=== PATIENT | male | born 1935 | race Caucasian/White ===

== ENCOUNTER 2021-02-24 12:41 | Emergency (ER) | payer OTHER, MEDICARE, SELFPAY ==
[2021-02-24 12:48] VITALS: BP 152/75; PULSE 88; RESP 18; TEMP 36.6; O2SAT 97; BMI 28.4
[2021-02-24 13:03] VITALS: BP 145/77; PULSE 86; RESP 16; O2SAT 95
--- NOTE | 2021-02-24 13:14 | CTR_ITS ---
PROCEDURE INFORMATION: Exam: CT Abdomen And Pelvis Without Contrast Exam date and time: 02/24/2021 1:30 PM Age: 86 years old Clinical indication: Abdominal pain; Localized; Right lower quadrant (rlq); Prior surgery; Surgery date: 6+ months; Surgery type: Hernia x 2; Patient HX: C/O R groin pain x 3 days w HX of hernias; Additional info: Right groin pain. H/o inguinal hernia TECHNIQUE: Imaging protocol: Computed tomography of the abdomen and pelvis without contrast. Radiation optimization: All CT scans at this facility use at least one of these dose optimization techniques: automated exposure control; mA and/or kV adjustment per patient size (includes targeted exams where dose is matched to clinical indication); or iterative reconstruction. COMPARISON: CT Abdomen/Pelvis w IV* [id number] 05/15/2018 12:00 AM RADIATION DOSE METRICS: Total DLP (mGy-cm): 1763.45 FINDINGS: Liver: Small nonspecific hepatic hypodensities consistent with cysts, largest approximately 15 mm. Gallbladder and bile ducts: Unremarkable. No ductal dilation. Pancreas: No acute findings. No ductal dilation. Spleen: Normal. No splenomegaly. Adrenal glands: Normal. No mass. Kidneys and ureters: No calculus or hydronephrosis. Stomach and bowel: No acute findings. No obstruction. No mucosal thickening. Colonic diverticulosis. Appendix: No evidence of appendicitis. Intraperitoneal space: Unremarkable. No free air. No significant fluid collection. Vasculature: No abdominal aortic aneurysm. Lymph nodes: No significant adenopathy. Urinary bladder: Unremarkable as visualized. Reproductive: Unremarkable as visualized. Bones/joints: No acute findings. Levoscoliosis, multilevel degenerative change. Lumbar spinal stenosis and L3-L4 and L4-L5. Soft tissues: Soft tissue thickening/scarring in both groins consistent with prior surgery, no hernia. CT/CT abdomen pelvis wo con [id number] IMPRESSION: No acute findings. Radiation Dose CTDIVOL = (mGy): DLP = 1763.45 (mGy-cm)
--- NOTE | 2021-02-24 13:21 | ED_ITS ---
HPI - Abdominal Pain General: Chief Complaint: Abdominal Pain Stated Complaint: hernia Time Seen by Provider: 02/24/21 12:57 Source: patient Mode of arrival: ambulatory Limitations: no limitations History of Present Illness: HPI narrative: Patient is an 86-year-old male with a history of inguinal hernias and has had [address] López. Patient developed abdominal pain in his right groin 3 days ago and he believes it is a hernia. He is therefore here to be evaluated for this. No nausea or vomiting, no constipation or diarrhea. His last bowel movement was this morning and he said was normal. He denies any fever or urinary symptoms. Pain is worse when he lifts his leg or basically flexes his hip joint. MD elicited complaint: abdominal pain Pertinent past history: other (hernias) Onset (ago): day(s) (3) Pain Consistency: constant Location: Groin Severity: moderate Quality: stabbing Radiation: other (right hip) Exacerbating factors: nothing Relieving factors: nothing Associated Symptoms: Denies anorexia, belching, bloating, change in bowel habits, change in stool character, chills, coffee ground emesis, constipation, GI cramping, diarrhea, dyspepsia, dysuria, excessive flatus, fever(s), heartburn, hematochezia, hematuria, hematemesis, fecal incontinence, loose stools, melena, nausea, poor appetite, syncope and vomiting Review of Systems General: Reports: 10 or more systems reviewed and unremarkable except in HPI and below Const: Denies: fever(s) or chills Card: Denies: syncope GI: Denies: nausea, vomiting, hematemesis, coffee ground emesis, heartburn, diarrhea, constipation, bloating, GI cramping, belching, excessive flatus, fecal incontinence, change in bowel habits, change in stool character, hematochezia or melena : Denies: dysuria or hematuria Physical Exam Const: COMMON NORMALS: no acute distress, average body habitus, patient oriented x3, no limitations, healthy appearing, alert and well nourished HENMT: COMMON NORMALS: normocephalic, atraumatic and moist oral mucous membranes HEAD & SCALP: normocephalic and atraumatic Neck/C-Spine: COMMON NORMALS: no meningeal signs and no JVD Resp: COMMON NORMALS: normal respiratory effort, No retractions, No use of accessory muscles, clear to auscultation bilaterally and percussion normal AUSCULTATION: clear to auscultation bilaterally PERCUSSION: percussion normal Cardio: COMMON NORMALS: no JVD, regular rate, regular rhythm, S1 normal heart sound present, S2 normal heart sound present, No gallops present (Cardio), No clicks present (Cardio), No murmurs present (Cardio), No rub (Cardio) and Peripheral pulses 2+ throughout RATE: regular rate RHYTHM: regular rhythm HEART SOUNDS: S1 normal heart sound present and S2 normal heart sound present PERIPHERAL PULSES: Peripheral pulses 2+ throughout GI: COMMON NORMALS: Normal to inspection, nondistended, normoactive bowel sounds present, Soft to palpation, non-tender, No hepatosplenomegaly present, no masses and no bruits PALPATION: Yes Soft to palpation and Yes No hepatosplenomegaly present OTHER: No discernible hernia. Extremity: COMMON NORMALS: normal to inspection, full ROM, capillary refill normal, no calf tenderness and no pedal edema Neuro: COMMON NORMALS: patient oriented x3 SENSORIUM/ORIENTATION: Yes alert MENINGEAL SIGNS: Yes no meningeal signs Skin: COMMON NORMALS: no rashes or lesions noted, no wounds, turgor normal, no jaundice, no petechiae and no mottling GENERAL SKIN EXAM: no rashes or lesions noted and turgor normal Course Reevaluation(s): Reevaluation #1: Discussed his lab and imaging findings with him, negative for acute findings. We will discharge him home with no new orders. Advised him to take [id number] analgesia. He voiced understanding and is in agreement with the plan. Time: 14:44 Vital Signs: Vital signs: Vital Signs Temperature 97.9 F 02/24/21 12:48 Pulse Rate 86 02/24/21 13:03 Respiratory Rate 16 02/24/21 13:03 Blood Pressure 145/77 02/24/21 13:03 Pulse Oximetry 95 02/24/21 13:03 MDM - Abdominal Pain MDM Narrative: Medical decision making narrative: 86-year-old male who presented to the emergency department because he had concerns that he may be having a recurrence of an inguinal hernia. Evaluation in the emergency department did not reveal a hernia including examination and CT scan of his abdomen and pelvis. He is discharged home on conservative measures and with no new orders. Medical Records: Attestation: I reviewed the patient's medical records. Lab Data: Attestation: I reviewed the patient's lab results. Labs: Lab Results 02/24/21 02/24/21 02/24/21 Range/Units 13:21 13:21 13:35 WBC 6.2 (4.0-10.0) 10^3/ uL RBC 4.73 (4.1-5.3) 10^6/u L Hgb 14.4 (11.7-16.6) g/dL Hct 43.7 (42.0-52.0) % MCV 92.4 (80-94) fL MCH 30.4 (28.0-34.0) pg MCHC 33.0 (30.0-36.0) g/dL RDW 14.2 (12.1-15.1) % Plt Count 269 (130-400) 10^3/c mm MPV 10.2 (7.4-10.4) fL Neut % (Auto) 62.0 % Lymph % (Auto) 26.9 % [place] % (Auto) 9.1 % Eos % (Auto) 1.3 % Baso % (Auto) 0.5 % Neut # (Auto) 3.87 (1.8-7.7) 10^3/u L Lymph # (Auto) 1.7 (0.8-4.8) 10^3/u L [place] # (Auto) 0.6 (0.2-0.9) 10^3/u L Eos # (Auto) 0.1 (0.0-0.8) 10^3/u L Baso # (Auto) 0.0 (0.0-0.1) 10^3/u L Nucleated RBC % (a uto) 0 % Nucleated RBCs # 0.0 /100WBC Sodium 137 (136-145) mmol/L Potassium 3.9 (3.5-5.1) mmol/L Chloride 100 (98-107) mmol/L Carbon Dioxide 28 (22-29) mmol/L Anion Gap 12.9 (5-19) BUN 17 (8-23) mg/dL Creatinine 1.0 (0.7-1.2) mg/dL GFR Calculation Not Reportable Glucose 104 (65-115) mg/dL Calculated Osmolal ity 286 (285-295) mOsm/k g Calcium 9.0 (8.5-10.5) mg/dL Total Bilirubin 0.6 (0.15-1.2) mg/dL AST 21 (0-40) U/L ALT 28 (0-41) U/L Alkaline Phosphata se 50 (40-130) IU/L Total Protein 7.0 (6.6-8.7) g/dL Albumin 4.1 (3.5-5.2) g/dL Globulin 2.9 (1.3-4.6) g/dL Lipase 33 (13-60) U/L Urine Color Yellow (Yellow) Urine Appearance Clear (CLEAR) Urine pH 7 (5-7) Ur Specific Gravit y 1.010 (1.005-1.030) Urine Protein Neg (Negative) Urine Glucose (UA) Norm (Normal) Urine Ketones Negative (Negative) Urine Blood Neg (Negative) Urine Nitrate Negative (Negative) Urine Bilirubin Neg (Negative) Urine Urobilinogen Norm (Negative) mg/dL Ur Leukocyte [place] Negative (Negative) Imaging Data ^: CT Abd/Pel: Attestation: I personally reviewed and interpreted this imaging study as follows: Radiologist's impression: [address] [address] [address] Scan Report Signed Patient: Alondra Maier #: [id number] : 1935Acct#:[id number] Age/Sex: 86 / MADM Date: 02/24/21 Loc: ERRoom/Bed: Attending Dr: Ordering Provider/Ordering MD: Tomi Heard MD, [facility] [place] Service: 02/24/21 Procedure(s): CT abdomen pelvis con [id number] Accession Number(s): [id number] Report Number: [id number] PROCEDURE INFORMATION: Exam: CT Abdomen And Pelvis Without Contrast Exam date and time: 02/24/2021 1:30 PM Age: 86 years old Clinical indication: Abdominal pain; Localized; Right lower quadrant (rlq); Prior surgery; Surgery date: 6+ months; Surgery type: Hernia x 2; Patient HX: C/O R groin pain x 3 days w HX of hernias; Additional info: Right groin pain. H/o inguinal hernia TECHNIQUE: Imaging protocol: Computed tomography of the abdomen and pelvis without contrast. Radiation optimization: All CT scans at this facility use at least one of these dose optimization techniques: automated exposure control; mA and/or kV adjustment per patient size (includes targeted exams where dose is matched to clinical indication); or iterative reconstruction. COMPARISON: CT Abdomen/Pelvis w IV* [id number] 05/15/2018 12:00 AM RADIATION DOSE METRICS: Total DLP (mGy-cm): 1763.45 FINDINGS: Liver: Small nonspecific hepatic hypodensities consistent with cysts, largest approximately 15 mm. Gallbladder and bile ducts: Unremarkable. No ductal dilation. Pancreas: No acute findings. No ductal dilation. Spleen: Normal. No splenomegaly. Adrenal glands: Normal. No mass. Kidneys and ureters: No calculus or hydronephrosis. Stomach and bowel: No acute findings. No obstruction. No mucosal thickening. Colonic diverticulosis. Appendix: No evidence of appendicitis. Intraperitoneal space: Unremarkable. No free air. No significant fluid collection. Vasculature: No abdominal aortic aneurysm. Lymph nodes: No significant adenopathy. Urinary bladder: Unremarkable as visualized. Reproductive: Unremarkable as visualized. Bones/joints: No acute findings. Levoscoliosis, multilevel degenerative change. Lumbar spinal stenosis and L3-L4 and L4-L5. Soft tissues: Soft tissue thickening/scarring in both groins consistent with prior surgery, no hernia. CT/CT abdomen pelvis wo con [id number] IMPRESSION: No acute findings. Radiation Dose CTDIVOL = (mGy): DLP = 1763.45 (mGy-cm) Dictated By:Joseph Mora MD Signed By:Joseph Moraigned Date/Time:02/24/211432 DD/ 143 Discharge Plan Discharge Patient Disposition: Home Clinical Impression: Right groin pain Condition: Stable Prescriptions: Continued Centrum Silver Men 300-600-300 mcg Tablet 1 tab PO DAILY@0800 RF: 0 latanoprost 0.005 % Drops 1 drp OPHTHALMIC (EYE) DAILY@1800 RF: 0 venlafaxine 75 mg Tablet 75 mg PO DAILY@0800 RF: 0 aspirin 81 mg Tablet,Delayed Release (Dr/Ec) 81 mg PO DAILY@0800 RF: 0 pentoxifylline 400 mg Tablet Extended Release 400 mg PO DAILY@1800 RF: 0 losartan-hydrochlorothiazide 100-25 mg Tablet 1 tab PO DAILY@0800 RF: 0 diphenhydramine-acetaminophen 25-500 mg Tablet 2 tab PO DAILY@1800 RF: 0 timolol maleate 0.5 % Drops 1 drp OPHTHALMIC (EYE) DAILY@1800 RF: 0 ezetimibe 10 mg Tablet 10 mg PO DAILY@1800 RF: 0 rosuvastatin 10 mg Tablet 5 mg PO DAILY@1800 RF: 0 diclofenac sodium 1 % Gel See Rx Instructions .ROUTE .COMPLEX RF: 0 Voltaren 1 % Gel See Rx Instructions .ROUTE .COMPLEX PRN (Reason: LEG PAIN) RF: 0 Vitamin D3 125 mcg (5,000 unit) Tablet 125 mcg PO DAILY@0800 RF: 0 coQ10 (ubiquinol) 100 mg Capsule 100 mg PO DAILY@1800 RF: 0 potassium chloride 20 mEq Tablet Extended Release 10 meq PO DAILY@0800 RF: 0 Glucosamine Chondroitin 1 tab PO BID@0800,1800 RF: 0 [place] 3 Fish Oil Concentrate 1,000 mg PO DAILY@1800 RF: 0 magnesium citrate 420 mg PO DAILY@0800 RF: 0 Discharge Orders: Discharge ED (Routine); Ordered 02/24/21 Ordered By: Tomi Heard Referrals: Preston Ashley MD [Primary Care Provider] - 1-3 days Discharge Diet: Usual diet Discharge Activity: Increase activity as tolerated Patient Instructions: Groin Pain (ED) Activity Restrictions/Additional Instructions: Return for any new or worsening symptoms. Follow-up with your primary care provider within 3 days. Take Tylenol or ibuprofen as needed for pain. On your CT scan there does not appear to be any significant hernia and so I do not think you need to follow-up with Dr. López, however you can to follow-up with him if you choose. Coding Level of Care Code ED [employer] Instructor for Chg Fwd Exam Comprehensive
--- NOTE | 2021-02-24 13:26 | PC.NURSE ---
Read and agree with assessment
[2021-02-24 13:31] LABS: Basophils % 0.5 %; Eosinophils # 0.1 10^3/uL (0.0-0.8); Eosinophils % 1.3 %; Hematocrit 43.7 % (42.0-52.0); Hemoglobin 14.4 g/dL (11.7-16.6); Lymphocytes # 1.7 10^3/uL (0.8-4.8); Lymphocytes % 26.9 %; Mean Corpuscular Hemoglobin 30.4 pg (28.0-34.0); Mean Corpuscular Volume 92.4 fL (80-94); Mean Platelet Volume 10.2 fL (7.4-10.4); Monocytes # 0.6 10^3/uL (0.2-0.9); Monocytes % 9.1 %; Neutrophils # 3.87 10^3/uL (1.8-7.7); Nucleated Red Blood Cells % 0 %; Platelet Count 269 10^3/cmm (130-400); Red Blood Count 4.73 10^6/uL (4.1-5.3); Red Cell Distribution Width 14.2 % (12.1-15.1); White Blood Count 6.2 10^3/uL (4.0-10.0)
[2021-02-24 13:46] LABS: Alanine Aminotransferase 28 U/L (0-41); Albumin Level 4.1 g/dL (3.5-5.2); Alkaline Phosphatase 50 IU/L (40-130); Anion Gap 12.9 (5-19); Aspartate Amino Transferase 21 U/L (0-40); Blood Urea Nitrogen 17 mg/dL (8-23); Carbon Dioxide 28 mmol/L (22-29); Chloride 100 mmol/L (98-107); Globulin 2.9 g/dL (1.3-4.6); Glucose 104 mg/dL (65-115); Lipase 33 U/L (13-60); Osmolality Calculated 286 mOsm/kg (285-295); Potassium 3.9 mmol/L (3.5-5.1); Sodium 137 mmol/L (136-145); Total Bilirubin 0.6 mg/dL (0.15-1.2)
[2021-02-24 13:49] LABS: Add Urine Microscopic? NO; Charge for UA Resulting for Rev
[2021-02-24 13:55] LABS: Urine Appearance Clear (CLEAR); Urine Color Yellow (Yellow); pH Urine 7 (5-7)
[2021-02-24 13:56] LABS: Bilirubin Urine Neg (Negative); Blood Urine Neg (Negative); Glucose Urine UA Norm (Normal); Ketones Urine Negative (Negative); Leukocyte Esterase Urine Negative (Negative); Nitrate Urine Negative (Negative); Protein Urine Neg (Negative); Urobilinogen Urine Norm (Negative)
== END 2021-02-24 14:51 | disposition home or self-care (01) ==
PROVIDERS: Emergency Provider Family Medicine; PCP Family Medicine
DX: R10.31 Right lower quadrant pain (principal); Z79.82 Long term (current) use of aspirin
CPT/HCPCS: 74176; 80053; 81003; 83690; 85025; 99283

== ENCOUNTER 2022-07-22 16:53 | Emergency (ER) | payer OTHER, MEDICARE, SELFPAY ==
[2022-07-22 17:16] VITALS: PULSE 83; RESP 16; TEMP 36.8; O2SAT 96; BMI 24.3
[2022-07-22 17:20] VITALS: BP 142/87
[2022-07-22 18:35] LABS: Basophils % 0.3 %; Eosinophils # 0.1 10^3/uL (0.0-0.8); Eosinophils % 1.4 %; Hematocrit 44.8 % (42.0-52.0); Hemoglobin 14.4 g/dL (11.7-16.6); Lymphocytes # 1.7 10^3/uL (0.8-4.8); Lymphocytes % 29.1 %; Mean Corpuscular HGB Conc 32.1 g/dL (30.0-36.0); Mean Corpuscular Hemoglobin 30.6 pg (28.0-34.0); Mean Corpuscular Volume 95.3 fl (80-94); Mean Platelet Volume 10.8 fL (7.4-10.4); Monocytes # 0.6 10^3/uL (0.2-0.9); Nucleated Red Blood Cells % 0 %; Platelet Count 277 10^3/cmm (130-400); Red Cell Distribution Width 13.7 % (12.1-15.1); White Blood Count 5.9 10^3/uL (4.0-10.0)
[2022-07-22 18:57] LABS: Alanine Aminotransferase 23 U/L (0-41); Albumin Level 4.3 g/dL (3.5-5.2); Alkaline Phosphatase 54 U/L (40-130); Anion Gap 12.3 (5-19); Aspartate Amino Transferase 21 U/L (0-40); Blood Urea Nitrogen 18 mg/dL (8-23); Calcium 9.4 mg/dL (8.5-10.5); Carbon Dioxide 30 mmol/L (22-29); Chloride 106 mmol/L (98-107); Globulin 2.9 g/dL (1.3-4.6); Glucose 101 mg/dL (65-115); Lipase 24 U/L (13-60); Osmolality Calculated 300 mOsm/kg (285-295); Potassium 4.3 mmol/L (3.5-5.1); Sodium 144 mmol/L (136-145); Total Bilirubin 0.3 mg/dL (0.15-1.2); Total Protein 7.2 g/dL (6.6-8.7)
--- NOTE | 2022-07-22 20:02 | CTR_ITS ---
PROCEDURE INFORMATION: Exam: CT Abdomen And Pelvis With Contrast Exam date and time: 07/22/2022 8:21 PM Age: 87 years old Clinical indication: Abdominal pain; Localized; Right lower quadrant (rlq); Prior surgery; Surgery date: 6+ months; Surgery type: Lt inguinal hernia repair; Additional info: Abd pain TECHNIQUE: Imaging protocol: Computed tomography of the abdomen and pelvis with contrast. Radiation optimization: All CT scans at this facility use at least one of these dose optimization techniques: automated exposure control; mA and/or kV adjustment per patient size (includes targeted exams where dose is matched to clinical indication); or iterative reconstruction. Contrast material: OMNI 350; Contrast volume: 80 ml; Contrast route: INTRAVENOUS (IV); COMPARISON: CT abdomen pelvis wo con [id number] 02/24/2021 1:55 PM RADIATION DOSE METRICS: Total DLP (mGy-cm): 586.88 FINDINGS: Diaphragm: There is a small hiatal hernia present. Liver: Simple appearing hepatic cysts measuring up to 15 mm. No acute hepatic abnormality. Gallbladder and bile ducts: No calcified stones. No ductal dilation. Pancreas: The pancreas is normal in appearance. No pancreatic duct dilatation. Spleen: The spleen is normal in size and appearance. Adrenal glands: The adrenal glands appear within normal limits. Kidneys and ureters: The kidneys are normal in morphology. No hydronephrosis. No solid mass. Stomach and bowel: Diverticulosis of the colon. No evidence of acute diverticulitis. No acute gastric abnormality demonstrated. The small bowel is unremarkable as demonstrated. Appendix: The appendix is normal in appearance. No evidence of appendicitis. Intraperitoneal space: No free air. No significant fluid collection. Vasculature: The aorta is atherosclerotic. No aortic aneurysm. Lymph nodes: No pathologically enlarged lymph nodes are demonstrated. Urinary bladder: The urinary bladder is unremarkable in appearance. Reproductive: Unremarkable as visualized. Bones/joints: Scoliosis and advanced degenerative change of the lumbar spine. Soft tissues: Small left anterolateral abdominal wall hernia, containing only fat. CT/CT abdomen pelvis w con* [id number] IMPRESSION: 1. No acute abnormality demonstrated in the abdomen and pelvis. 2. Small left anterolateral abdominal wall hernia, containing only fat. This is unchanged from 02/24/2021. 3. Diverticulosis of the colon. No evidence of acute diverticulitis.
--- NOTE | 2022-07-22 20:03 | ECG_ITS ---
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 Measurements Intervals [place] Rate: 59 P: 62 OR: 236 QRS: 24 QRSD: 89 T: 44 QT: 398 QTc: 397 Interpretive Statements SINUS BRADYCARDIA WITH FIRST DEGREE AV BLOCK No previous ECG available for comparison Electronically Signed On 07-23-2022 16:38:58 CDT by Katie Jefferson M.D. [email or web address]
--- NOTE | 2022-07-22 20:14 | ED_ITS ---
HPI - General Adult General: Chief complaint: Abdominal Pain Stated complaint: Abd pains Time Seen by Provider: 07/22/22 20:02 History of Present Illness: Patient is a 87-year-old male with a history of left-sided inguinal hernia repair presenting to the emergency room for evaluation of right lower quadrant abdominal pain x5 days. He says that he has had intermittent severe right lower quadrant abdominal pain. Pain not associate with nausea vomiting or p.o. intake. Patient says the pain comes and goes lasting for few hours at a time. Patient denies any chest pain, shortness breath, palpitation, nausea/vomiting, diarrhea/melena/hematochezia. Patient denies any complaints. Onset:5 days ago Duration:5 days Location:home Severity:moderate Associated symptoms: Deny chest pain, dyspnea, nausea, rash, palpitations or vomiting Review of Systems Const: Denies: fever(s) or chills Eyes: Denies: change in vision ENMT: Denies: mouth pain Card: Denies: chest pain or palpitations Resp: Denies: dyspnea or non-productive cough GI: Reports: abdominal pain (+RLQ abd pain); Denies: nausea, vomiting or diarrhea : Denies: dysuria Musc: Denies: extremity pain Skin/Breast: Denies: rash or new lesions Neuro: Denies: weakness in extremities Psych: Reports: other (Normal mood) Chi/Lymph: Denies: easy bruising [facility] ED PFSH: Medical History Hypertension Surgical History H/O inguinal hernia repair Social History Smoking and tobacco status: never smoked Alcohol intake: never Substance/Drug Use: never Physical Exam Const: COMMON NORMALS: alert HENMT: COMMON NORMALS: atraumatic HEAD & SCALP: atraumatic MOUTH: moist mucous membranes not abnormal Eye: COMMON NORMALS: EOMs intact bilaterally and conjunctivae normal CONJUNCTIVA: Yes conjunctivae normal Neck/C-Spine: COMMON NORMALS: full ROM and supple Resp: COMMON NORMALS: normal respiratory effort and clear to auscultation bilaterally AUSCULTATION: clear to auscultation bilaterally Cardio: COMMON NORMALS: regular rate RATE: regular rate GI: COMMON NORMALS: Soft to palpation and non-tender PALPATION: Yes Soft to palpation OTHER: No focal TTP. NO guarding rebound, guarding, rigidity. No CVA tenderness to percussion. Neg Trimble/Neg McBurney's point tenderness, no suprabupic tenderness to palpation. Extremity: COMMON NORMALS: full ROM Neuro: SENSORIUM/ORIENTATION: Yes alert MOTOR EXAM: No Abnormal motor strength present and Other motor observations present (no focal motor deficits) Psych: COMMON NORMALS: speech normal SPEECH: Yes normal speech MOOD & AFFECT: Yes euthymic mood Course Vital Signs: Vital signs: Vital Signs Temperature 98.2 F 07/22/22 17:16 Pulse Rate 86 07/22/22 21:26 Respiratory Rate 18 07/22/22 21:26 Blood Pressure 157/89 07/22/22 21:26 Pulse Oximetry 96 07/22/22 21:26 Oxygen Delivery Me thod 07/22/22 21:26 MDM - General Adult Medical Decision Making Patient is a 87-year-old male with a history of left-sided inguinal hernia repair presenting to the emergency room for evaluation of right lower quadrant abdominal pain x5 days. On exam, patient is no focal tenderness palpation. No guarding no rebound tenderness. Hemodynamically stable. Patient is AAOx3, co nversant. Lab work showed white count 55.9. Rest of lab work within normal limit. CT abd+pelvis showed no focal pathology. He was negative for UTI. Troponin x2 with delta less than 5. EKG is nonischemic. He has no complaints of chest pain. Do not suspect ACS. Rx tylenol PRN abd pain, maalox/pepcid PRN dyspepsia, and zofran PRN nausea/vomiting Disposition: Discharge. Patient counseled regarding diagnostic impression, treatment plan. Patient given ED strict return precautions to return for continuation, worsening, or development of new symptoms. Instructed to f/u w/ PCP regarding symptoms today. Patient verbalized understanding. Lab Data : 07/22/22 18:17 07/22/22 18:17 Radiology Impressions Abdomen/Pelvis CT 07/22/22 20:02 IMPRESSION: 1. No acute abnormality demonstrated in the abdomen and pelvis. 2. Small left anterolateral abdominal wall hernia, containing only fat. This is unchanged from 02/24/2021. 3. Diverticulosis of the colon. No evidence of acute diverticulitis. Laboratory Results WBC 5.9 10^3/uL (4.0-10.0) 07/22/22 18:17 RBC 4.70 10^6/uL (4.1-5.3) 07/22/22 18:17 Hgb 14.4 g/dL (11.7-16.6) 07/22/22 18:17 Hct 44.8 % (42.0-52.0) 07/22/22 18:17 MCV 95.3 fl (80-94) H 07/22/22 18:17 MCH 30.6 pg (28.0-34.0) 07/22/22 18:17 MCHC 32.1 g/dL (30.0-36.0) 07/22/22 18:17 RDW 13.7 % (12.1-15.1) 07/22/22 18:17 Plt Count 277 10^3/cmm (130-400) 07/22/22 18:17 MPV 10.8 fL (7.4-10.4) H 07/22/22 18:17 Neut % (Auto) 59.0 % 07/22/22 18:17 Lymph % (Auto) 29.1 % 07/22/22 18:17 [place] % (Auto) 10.0 % 07/22/22 18:17 Eos % (Auto) 1.4 % 07/22/22 18:17 Baso % (Auto) 0.3 % 07/22/22 18:17 Neut # (Auto) 3.50 10^3/uL (1.8-7.7) 07/22/22 18:17 Lymph # (Auto) 1.7 10^3/uL (0.8-4.8) 07/22/22 18:17 [place] # (Auto) 0.6 10^3/uL (0.2-0.9) 07/22/22 18:17 Eos # (Auto) 0.1 10^3/uL (0.0-0.8) 07/22/22 18:17 Baso # (Auto) 0.0 10^3/uL (0.0-0.1) 07/22/22 18:17 Nucleated RBC % (auto) 0 % 07/22/22 18:17 Nucleated RBCs # 0.0 /100WBC 07/22/22 18:17 Sodium 144 mmol/L (136-145) 07/22/22 18:17 Potassium 4.3 mmol/L (3.5-5.1) 07/22/22 18:17 Chloride 106 mmol/L (98-107) 07/22/22 18:17 Carbon Dioxide 30 mmol/L (22-29) H 07/22/22 18:17 Anion Gap 12.3 (5-19) 07/22/22 18:17 BUN 18 mg/dL (8-23) 07/22/22 18:17 Creatinine 1.0 mg/dL (0.7-1.2) 07/22/22 18:17 GFR Calculation Not Reportable 07/22/22 18:17 Glucose 101 mg/dL (65-115) 07/22/22 18:17 Calculated Osmolality 300 mOsm/kg (285-295) H 07/22/22 18:17 Calcium 9.4 mg/dL (8.5-10.5) 07/22/22 18:17 Total Bilirubin 0.3 mg/dL (0.15-1.2) 07/22/22 18:17 AST 21 U/L (0-40) 07/22/22 18:17 ALT 23 U/L (0-41) 07/22/22 18:17 Alkaline Phosphatase 54 U/L (40-130) 07/22/22 18:17 Troponin T Baseline 26 ng/L (0-15) H 07/22/22 20:14 Troponin T 120 Minute 25.75 ng/L (0-15) H 07/22/22 21:20 Delta Troponin T -0.25 ABS# (0-10) L 07/22/22 21:20 Total Protein 7.2 g/dL (6.6-8.7) 07/22/22 18:17 Albumin 4.3 g/dL (3.5-5.2) 07/22/22 18:17 Globulin 2.9 g/dL (1.3-4.6) 07/22/22 18:17 Lipase 24 U/L (13-60) 07/22/22 18:17 Urine Color Yellow (Yellow) 07/22/22 21:20 Urine Appearance Clear (CLEAR) 07/22/22 21:20 Urine pH 5 (5-7) 07/22/22 21:20 Ur Specific [place] 1.025 (1.005-1.030) 07/22/22 21:20 Urine Protein Neg (Negative) 07/22/22 21:20 Urine Glucose (UA) Norm (Normal) 07/22/22 21:20 Urine Ketones Negative (Negative) 07/22/22 21:20 Urine Blood Neg (Negative) 07/22/22 21:20 Urine Nitrate Negative (Negative) 07/22/22 21:20 Urine Bilirubin Neg (Negative) 07/22/22 21:20 Urine Urobilinogen Norm mg/dL (Negative) 07/22/22 21:20 Ur Leukocyte Esterase Trace (Negative) H 07/22/22 21:20 Urine RBC 0-4 /hpf (0-2) H 07/22/22 21:20 Urine WBC 0-4 /hpf (0-5) H 07/22/22 21:20 Ur Squamous Epith Cells 0-4 /hpf (0-5) H 07/22/22 21:20 Amorphous Sediment Not Reportable 07/22/22 21:20 Urine Bacteria 1+ /hpf (NONE) H 07/22/22 21:20 Urine Mucus 1+ /hpf 07/22/22 21:20 Imaging Data Other Imaging: Radiologist's impression: [id number] [address] [address] Scan Report Signed Patient: John Maier Unit #: [id number] : 1935 Age/Sex: 87 / M ADM Date: 07/22/22 Loc: ER Room/Bed: Attending Dr: Ordering Provider/Ordering MD: Rosalinda Peng MD Date of Service: 07/22/22 Procedure(s): CT abdomen pelvis w con* [id number] Accession Number(s): [id number] Report Number: [id number] PROCEDURE INFORMATION: Exam: CT Abdomen And Pelvis With Contrast Exam date and time: 07/22/2022 8:21 PM Age: 87 years old Clinical indication: Abdominal pain; Localized; Right lower quadrant (rlq); Prior surgery; Surgery date: 6+ months; Surgery type: Lt inguinal hernia repair; Additional info: Abd pain TECHNIQUE: Imaging protocol: Computed tomography of the abdomen and pelvis with contrast. Radiation optimization: All CT scans at this facility use at least one of these dose optimization techniques: automated exposure control; mA and/or kV adjustment per patient size (includes targeted exams where dose is matched to clinical indication); or iterative reconstruction. Contrast material: OMNI 350; Contrast volume: 80 ml; Contrast route: INTRAVENOUS (IV);? COMPARISON: CT abdomen pelvis wo con [id number] 02/24/2021 1:55 PM RADIATION DOSE METRICS: Total DLP (mGy-cm): 586.88 FINDINGS: Diaphragm: There is a small hiatal hernia present. Liver: Simple appearing hepatic cysts measuring up to 15 mm. No acute hepatic abnormality. Gallbladder and bile ducts: No calcified stones. No ductal dilation. Pancreas: The pancreas is normal in appearance. No pancreatic duct dilatation. Spleen: The spleen is normal in size and appearance. Adrenal glands: The adrenal glands appear within normal limits. Kidneys and ureters: The kidneys are normal in morphology. No hydronephrosis. No solid mass. Stomach and bowel: Diverticulosis of the colon. No evidence of acute diverticulitis. No acute gastric abnormality demonstrated. The small bowel is unremarkable as demonstrated. Appendix: The appendix is normal in appearance. No evidence of appendicitis. Intraperitoneal space: No free air. No significant fluid collection. Vasculature: The aorta is atherosclerotic. No aortic aneurysm. Lymph nodes: No pathologically enlarged lymph nodes are demonstrated. Urinary bladder: The urinary bladder is unremarkable in appearance. Reproductive: Unremarkable as visualized. Bones/joints: Scoliosis and advanced degenerative change of the lumbar spine. Soft tissues: Small left anterolateral abdominal wall hernia, containing only fat. CT/CT abdomen pelvis w con* [id number] IMPRESSION: 1. No acute abnormality demonstrated in the abdomen and pelvis. 2. Small left anterolateral abdominal wall hernia, containing only fat. This is unchanged from 02/24/2021. 3. Diverticulosis of the colon. No evidence of acute diverticulitis. ? Dictated By: Stefan Mccord MD Signed By: Stefan Mccord MD Signed Date/Time: 07/22/222100 DD/ 20 Discharge Plan Discharge Patient Disposition: Home Clinical Impression: Abdominal pain Prescriptions: New acetaminophen 500 mg tablet 500 mg PO Q6H PRN (Reason: pain) 5 Days Qty: 20 0RF Pepcid 20 mg tablet 20 mg PO BID PRN (Reason: abdominal pain) 10 Days Qty: 20 0RF ondansetron 4 mg tablet,disintegrating 4 mg PO TID PRN (Reason: nausea and vomiting) 4 Days Qty: 12 0RF Maalox Advanced 1,000-60 mg tablet,chewable 1 tab PO TID PRN (Reason: abdominal pain) 7 Days Qty: 21 0RF No Action Centrum Silver Men 300-600-300 mcg Tablet 1 tab PO DAILY@0800 latanoprost 0.005 % Drops 1 drp OPHTHALMIC (EYE) DAILY@1800 venlafaxine 75 mg Tablet 75 mg PO DAILY@0800 aspirin 81 mg Tablet,Delayed Release (Dr/Ec) 81 mg PO DAILY@0800 pentoxifylline 400 mg Tablet Extended Release 400 mg PO DAILY@1800 losartan-hydrochlorothiazide 100-25 mg Tablet 1 tab PO DAILY@0800 diphenhydramine-acetaminophen 25-500 mg Tablet 2 tab PO DAILY@1800 timolol maleate 0.5 % Drops 1 drp OPHTHALMIC (EYE) DAILY@1800 ezetimibe 10 mg Tablet 10 mg PO DAILY@1800 rosuvastatin 10 mg Tablet 5 mg PO DAILY@1800 diclofenac sodium 1 % Gel See Rx Instructions .ROUTE .COMPLEX Rx Instructions: topically, USE DIRECTED Voltaren 1 % Gel See Rx Instructions .ROUTE .COMPLEX PRN (Reason: LEG PAIN) Rx Instructions: topically Vitamin D3 125 mcg (5,000 unit) Tablet 125 mcg PO DAILY@0800 coQ10 (ubiquinol) 100 mg Capsule 100 mg PO DAILY@1800 potassium chloride 20 mEq Tablet Extended Release 10 meq PO DAILY@0800 Glucosamine Chondroitin 1 tab PO BID@0800,1800 [place] 3 Fish Oil Concentrate 1,000 mg PO DAILY@1800 magnesium citrate 420 mg PO DAILY@0800 Discharge Orders: Discharge ED (Routine); Ordered 07/22/22 Ordered By: Rosalinda Peng Referrals: Preston Ashley MD [Primary Care Provider] - Discharge Diet: Advance as tolerated Discharge Activity: Increase activity as tolerated Patient Instructions: Abdominal Pain (ED) Activity Restrictions/Additional Instructions: Please come back if you have any worsening abdominal pain, fever or chills, nausea or vomiting, diarrhea, blood in the stool, inability hold down liquid or solids, or any new concerning complaints. Coding Level of Care Code ED [place] Former Hand for [place] Fwd Exam Comprehensive
[2022-07-22] MEDS: iohexol 350 mg/mL 100 mL Btl IV (20:32)
[2022-07-22 20:48] LABS: Troponin(5th) Baseline 26 ng/L (0-15)
[2022-07-22 21:26] VITALS: BP 157/89; PULSE 86; RESP 18; O2SAT 96
[2022-07-22 22:03] LABS: Add Urine Microscopic? YES; Bacteria Urine 1+ /hpf; Bilirubin Urine Neg (Negative); Blood Urine Neg (Negative); Glucose Urine UA Norm (Normal); Ketones Urine Negative (Negative); Leukocyte Esterase Urine Trace (Negative); Mucus Urine 1+ /hpf; Nitrate Urine Negative (Negative); Protein Urine Neg (Negative); RBC Urine 0-4 /hpf (0-2); Specific Gravity, Urine 1.025 (1.005-1.030); Squamous Epithelial Cell Urine 0-4 /hpf (0-5); Urine Appearance Clear (CLEAR); Urine Color Yellow (Yellow); Urobilinogen Urine Norm (Negative); WBC Urine 0-4 /hpf (0-5); pH Urine 5 (5-7)
[2022-07-22 22:04] LABS: Troponin 5 2HR 25.75 ng/L (0-15)
[2022-07-22 22:09] LABS: Troponin 5 2HR Delta -0.25 ABS# (0-10)
[2022-07-22 22:31] VITALS: BP 164/87; RESP 16; O2SAT 95
== END 2022-07-22 22:33 | disposition home or self-care (01) ==
PROVIDERS: Registered Nurse; Emergency Provider Emergency Medicine; PCP Family Medicine
DX: R10.9 Unspecified abdominal pain (principal); Z79.82 Long term (current) use of aspirin; I10 Essential (primary) hypertension
CPT/HCPCS: 74177; 80053; 81001; 83690; 84484; 85025; 93005; 99285; Q9967

== ENCOUNTER 2022-08-05 14:57 | Emergency (ER) | payer OTHER, SELFPAY ==
--- NOTE | 2022-08-05 14:58 | XRR_ITS ---
PROCEDURE INFORMATION: Exam: XR Chest Exam date and time: 08/05/2022 3:13 PM Age: 87 years old Clinical indication: Pain; Angina pectoris; Additional info: Cp TECHNIQUE: Imaging protocol: Radiologic exam of the chest. Views: 1 view. COMPARISON: CT abdomen pelvis w con* [id number] 07/22/2022 8:21 PM FINDINGS: Lungs: Unremarkable. No consolidation. Pleural spaces: Unremarkable. No pleural effusion. No pneumothorax. Heart/Mediastinum: Unremarkable. No cardiomegaly. Bones/joints: Unremarkable. XR/XR chest 1V portable [id number] IMPRESSION: No acute findings.
[2022-08-05 15:01] VITALS: BP 119/77; PULSE 98; RESP 20; TEMP 37.3; O2SAT 95; BMI 25.8
--- NOTE | 2022-08-05 15:11 | ECG_ITS ---
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 Measurements Intervals Richards Rate: 98 P: 48 IL: 192 QRS: 25 QRSD: 88 T: 40 QT: 365 QTc: 466 Interpretive Statements SINUS RHYTHM WITH OCCASIONAL SUPRAVENTRICULAR PREMATURE COMPLEXES Compared to ECG 07/22/2022 20:13:37 Sinus bradycardia no longer present First degree AV block no longer present Electronically Signed On 08-05-2022 18:33:11 CDT by Nickolas Richter M.D. [id number]
[2022-08-05 15:23] LABS: Basophils % 0.1 %; Eosinophils % 0.3 %; Hematocrit 42.1 % (42.0-52.0); Hemoglobin 13.9 g/dL (11.7-16.6); Lymphocytes # 1.5 10^3/uL (0.8-4.8); Lymphocytes % 15.2 %; Mean Corpuscular Hemoglobin 30.8 pg (28.0-34.0); Mean Corpuscular Volume 93.3 fl (80-94); Mean Platelet Volume 11.7 fL (7.4-10.4); Monocytes # 0.8 10^3/uL (0.2-0.9); Monocytes % 7.9 %; Neutrophils # 7.61 10^3/uL (1.8-7.7); Neutrophils % 76.2 %; Nucleated Red Blood Cells % 0 %; Platelet Count 226 10^3/cmm (130-400); Red Blood Count 4.51 10^6/uL (4.1-5.3); Red Cell Distribution Width 13.6 % (12.1-15.1)
--- NOTE | 2022-08-05 15:24 | W.ED.CHESTPA ---
HPI - Chest Pain General: Chief Complaint: Chest Pain Stated Complaint: CHEST PAIN/ DIAPHORETIC Time Seen by Provider: 08/05/22 14:57 Source: patient and EMS Mode of arrival: EMS Limitations: no limitations History of Present Illness: 87-year-old male who is actually the doctor's office with his who is being seen stated that he started having some epigastric pain that was sharp pain and having a little nausea and diaphoresis. He states is roughly 30 minutes ago office had called EMS patient given nitro aspirin he states he feels much improved EMS did give him atropine as he had a heart rate in the 40s. He denies any pain currently denies any vomiting or diarrhea denies any fever. Associated symptoms: Reports abdominal pain; Deny dyspnea or fever(s) Review of Systems Const: Denies: fever(s), chills, body aches or change in appetite Eyes: Denies: blurry vision or eye discomfort ENMT: Denies: throat pain or dental pain Card: Reports: chest pain Resp: Denies: dyspnea GI: Reports: abdominal pain : Denies: dysuria Musc: Denies: neck pain or back pain Skin/Breast: Denies: rash Neuro: Denies: headache(s) Psych: Denies: depression Chi/Lymph: Denies: easy bruising All/Imm: Denies: urticaria PFSH ED PFSH: Medical History Hypertension Surgical History H/O inguinal hernia repair Social History Smoking and tobacco status: never smoked Alcohol intake: never Physical Exam Const: COMMON NORMALS: no acute distress, patient oriented x3 and healthy appearing HENMT: COMMON NORMALS: normocephalic and atraumatic HEAD & SCALP: normocephalic and atraumatic Eye: COMMON NORMALS: Equal, round and reactive pupils present and EOMs intact bilaterally PUPIL: Yes Equal, round and reactive pupils present Neck/C-Spine: COMMON NORMALS: full ROM and supple Chest: COMMONS NORMALS: normal inspection of the chest and normal palpation of entire chest wall Resp: COMMON NORMALS: normal respiratory effort, No retractions, No use of accessory muscles and clear to auscultation bilaterally AUSCULTATION: clear to auscultation bilaterally Cardio: COMMON NORMALS: regular rate, regular rhythm and No murmurs present (Cardio) RATE: regular rate RHYTHM: regular rhythm GI: COMMON NORMALS: Normal to inspection, nondistended, normoactive bowel sounds present, Soft to palpation, non-tender and no masses PALPATION: Yes Soft to palpation Extremity: COMMON NORMALS: normal to inspection and full ROM Neuro: COMMON NORMALS: patient oriented x3, moves all extremities and no focal motor deficits Psych: COMMON NORMALS: mental status grossly normal, Normal thought process present and cooperative THOUGHT PROCESS: Normal thought process present Skin: COMMON NORMALS: no rashes or lesions noted and no wounds GENERAL SKIN EXAM: no rashes or lesions noted Course Vital Signs: Vital signs: Vital Signs Temperature 99.1 F 08/05/22 15:01 Pulse Rate 70 08/05/22 17:03 Respiratory Rate 16 08/05/22 17:03 Blood Pressure 127/36 08/05/22 17:03 Pulse Oximetry 99 08/05/22 17:03 Oxygen Delivery Me thod 08/05/22 15:01 Oxygen Flow Rate 2 08/05/22 15:01 MDM - Chest Pain Medical Decision Making Patient presents for chest pains atypical in nature was more gastric gastritis or reflux his initial and repeat troponins and EKG here are normal he has been pain-free here he has an appointment with his PCP is no signs of acute coronary syndrome he had a CT here of his abdomen recently that was negative as well he stable for discharge follow-up this week as scheduled return if worsening he understands agrees to plan. Lab Data : 08/05/22 15:18 08/05/22 15:18 Radiology Impressions Chest X-Ray 08/05/22 14:58 IMPRESSION: No acute findings. Laboratory Results WBC 10.0 10^3/uL (4.0-10.0) 08/05/22 15:18 RBC 4.51 10^6/uL (4.1-5.3) 08/05/22 15:18 Hgb 13.9 g/dL (11.7-16.6) 08/05/22 15:18 Hct 42.1 % (42.0-52.0) 08/05/22 15:18 MCV 93.3 fl (80-94) 08/05/22 15:18 MCH 30.8 pg (28.0-34.0) 08/05/22 15:18 MCHC 33.0 g/dL (30.0-36.0) 08/05/22 15:18 RDW 13.6 % (12.1-15.1) 08/05/22 15:18 Plt Count 226 10^3/cmm (130-400) 08/05/22 15:18 MPV 11.7 fL (7.4-10.4) H 08/05/22 15:18 Neut % (Auto) 76.2 % 08/05/22 15:18 Lymph % (Auto) 15.2 % 08/05/22 15:18 [place] % (Auto) 7.9 % 08/05/22 15:18 Eos % (Auto) 0.3 % 08/05/22 15:18 Baso % (Auto) 0.1 % 08/05/22 15:18 Neut # (Auto) 7.61 10^3/uL (1.8-7.7) 08/05/22 15:18 Lymph # (Auto) 1.5 10^3/uL (0.8-4.8) 08/05/22 15:18 [place] # (Auto) 0.8 10^3/uL (0.2-0.9) 08/05/22 15:18 Eos # (Auto) 0.0 10^3/uL (0.0-0.8) 08/05/22 15:18 Baso # (Auto) 0.0 10^3/uL (0.0-0.1) 08/05/22 15:18 Nucleated RBC % (auto) 0 % 08/05/22 15:18 Nucleated RBCs # 0.0 /100WBC 08/05/22 15:18 Sodium 139 mmol/L (136-145) 08/05/22 15:18 Potassium 3.8 mmol/L (3.5-5.1) 08/05/22 15:18 Chloride 102 mmol/L (98-107) 08/05/22 15:18 Carbon Dioxide 25 mmol/L (22-29) 08/05/22 15:18 Anion Gap 15.8 (5-19) 08/05/22 15:18 BUN 14 mg/dL (8-23) 08/05/22 15:18 Creatinine 1.0 mg/dL (0.7-1.2) 08/05/22 15:18 GFR Calculation Not Reportable 08/05/22 15:18 Glucose 119 mg/dL (65-115) H 08/05/22 15:18 Calculated Osmolality 290 mOsm/kg (285-295) 08/05/22 15:18 Calcium 9.1 mg/dL (8.5-10.5) 08/05/22 15:18 Total Bilirubin 0.7 mg/dL (0.15-1.2) 08/05/22 15:18 AST 43 U/L (0-40) H 08/05/22 15:18 ALT 35 U/L (0-41) 08/05/22 15:18 Alkaline Phosphatase 57 U/L (40-130) 08/05/22 15:18 Troponin T Baseline 23 ng/L (0-15) H 08/05/22 15:18 Troponin T 120 Minute 22.14 ng/L (0-15) H 08/05/22 16:55 Delta Troponin T -0.86 ABS# (0-10) L 08/05/22 16:55 Total Protein 6.8 g/dL (6.6-8.7) 08/05/22 15:18 Albumin 3.9 g/dL (3.5-5.2) 08/05/22 15:18 Globulin 2.9 g/dL (1.3-4.6) 08/05/22 15:18 Lipase 74 U/L (13-60) H 08/05/22 15:18 EKG Data EKG 1: I personally reviewed and interpreted this EKG as follows: EKG interpretation date: 08/05/22 EKG interpretation time: 15:11 Interpretation: nsr hr [address] or t wave abnormalities qrs 88 qtc 420 Discharge Plan Discharge Patient Disposition: Home Clinical Impression: Chest pain Qualifiers: Chest pain type: unspecified Qualified Code(s): R07.9 - Chest pain, unspecified Condition: Stable Prescriptions: No Action Centrum Silver Men 300-600-300 mcg Tablet 1 tab PO DAILY@0800 latanoprost 0.005 % Drops 2 drp OPHTHALMIC (EYE) DAILY@1800 aspirin 81 mg Tablet,Delayed Release (Dr/Ec) 81 mg PO DAILY@0800 losartan-hydrochlorothiazide 100-25 mg Tablet 1 tab PO DAILY diphenhydramine-acetaminophen 25-500 mg Tablet 2 tab PO DAILY@1800 ezetimibe 10 mg Tablet 10 mg PO DAILY rosuvastatin 10 mg Tablet 5 mg PO DAILY@1800 cholecalciferol (vitamin D3) [Vitamin D3] 125 mcg (5,000 unit) Tablet 125 mcg PO DAILY@0800 Fish Oil Concentrate 1,000 mg Capsule 1,000 mg PO BID potassium chloride 10 mEq Tablet Extended Release 10 meq PO DAILY@08 Tylenol Ex Str Rapid Release 500 mg Tablet 500 mg PO Q6H PRN (Reason: Pain) Pepcid 20 mg Tablet 20 mg PO BID PRN (Reason: lower stomach acid) calcium carbonate 500 mg calcium (1,250 mg) Tablet,Chewable 1,000 mg PO TID PRN (Reason: unknown) Zofran ODT 4 mg Tablet,Disintegrating 4 mg PO TID PRN (Reason: Nausea And Vomiting) Claritin 10 mg Tablet 10 mg PO DAILY simethicone 80 mg Tablet,Chewable 80 mg PO TID PRN (Reason: gas discomfort) CoQ-10 100 mg Capsule 100 mg PO DAILY@18 venlafaxine 75 mg Tablet Extended Release 24hr 75 mg PO QAM lactobacillus combo #5 150 mg (2 billion cell) Tablet,Delayed Release (Dr/Ec) 150 mg PO DAILY magnesium citrate 100 mg Tablet 100 mg PO DAILY Glucosamine Chondroitin 550-30-1 mg Capsule 1 cap PO BID Discharge Orders: Discharge ED (Routine); Ordered 08/05/22 Ordered By: Behzad Okeefe Referrals: Preston Ashley MD [Primary Care Provider] - 1-3 days Discharge Diet: Advance as tolerated Discharge Activity: Resume usual activity Patient Instructions: Chest Pain (ED) Coding Level of Care Code ED Engraver Pantograph for Chg Fwd Exam Comprehensive
[2022-08-05 15:52] LABS: Alanine Aminotransferase 35 U/L (0-41); Albumin Level 3.9 g/dL (3.5-5.2); Alkaline Phosphatase 57 U/L (40-130); Anion Gap 15.8 (5-19); Aspartate Amino Transferase 43 U/L (0-40); Blood Urea Nitrogen 14 mg/dL (8-23); Calcium 9.1 mg/dL (8.5-10.5); Carbon Dioxide 25 mmol/L (22-29); Chloride 102 mmol/L (98-107); Globulin 2.9 g/dL (1.3-4.6); Glucose 119 mg/dL (65-115); Lipase 74 U/L (13-60); Osmolality Calculated 290 mOsm/kg (285-295); Potassium 3.8 mmol/L (3.5-5.1); Sodium 139 mmol/L (136-145); Total Bilirubin 0.7 mg/dL (0.15-1.2); Total Protein 6.8 g/dL (6.6-8.7)
[2022-08-05 16:17] LABS: Troponin(5th) Baseline 23 ng/L (0-15)
--- NOTE | 2022-08-05 16:30 | PC.NURSE ---
PT PLACED ON CONTINUOUS NIBP, SPO2, AND CM
--- NOTE | 2022-08-05 16:31 | PC.PHAR ---
pt states he takes care of his own medications-[facility] med [facility] has flonase one spray daily prn pt states he doesnt use-pt states he is unsure if he takes the hctz/loasrtan 25-100mg daily medication is on pts [facility] med [facility]-medications entered are meds the pt states he takes and what medication was on the pts [facility] med list
[2022-08-05 17:03] VITALS: BP 127/36; PULSE 70; RESP 16; O2SAT 99
[2022-08-05 17:18] LABS: Troponin 5 2HR 22.14 ng/L (0-15)
[2022-08-05 17:19] LABS: Troponin 5 2HR Delta -0.86 ABS# (0-10)
== END 2022-08-05 17:40 | disposition home or self-care (01) ==
PROVIDERS: Emergency Provider Emergency Medicine; PCP Family Medicine
DX: R07.9 Chest pain, unspecified (principal); Z79.82 Long term (current) use of aspirin; I10 Essential (primary) hypertension
CPT/HCPCS: 71045; 80053; 83690; 84484; 85025; 93005; 99285

== ENCOUNTER 2022-08-22 11:27 | Emergency (ER) | payer OTHER, SELFPAY ==
[2022-08-22 11:30] VITALS: BP 167/82; PULSE 66; RESP 16; TEMP 36.8; O2SAT 100; BMI 26.4
--- NOTE | 2022-08-22 14:21 | CTR_ITS ---
PROCEDURE INFORMATION: Exam: CT Head Without Contrast Exam date and time: 08/22/2022 3:16 PM Age: 87 years old Clinical indication: Walking, difficulty and other: Balance issues; Additional info: Leftsided weakness TECHNIQUE: Imaging protocol: Computed tomography of the head without contrast. Radiation optimization: All CT scans at this facility use at least one of these dose optimization techniques: automated exposure control; mA and/or kV adjustment per patient size (includes targeted exams where dose is matched to clinical indication); or iterative reconstruction. COMPARISON: No relevant prior studies available. RADIATION DOSE METRICS: Total DLP (mGy-cm): 1279.58 FINDINGS: Brain: Mild diffuse white matter disease likely reflecting chronic microvascular ischemic changes. Cerebral ventricles: No ventriculomegaly. Paranasal sinuses: Paranasal sinus opacifications. Mastoid air cells: Visualized mastoid air cells are well aerated. Bones/joints: Unremarkable. No acute fracture. Soft tissues: Unremarkable. CT/CT head wo con* [id number] IMPRESSION: Negative for intracranial hemorrhage or mass effect.
[2022-08-22 14:27] LABS: Basophils % 0.6 %; Eosinophils # 0.1 10^3/uL (0.0-0.8); Eosinophils % 1.2 %; Hematocrit 45.6 % (42.0-52.0); Hemoglobin 14.7 g/dL (11.7-16.6); Lymphocytes # 1.9 10^3/uL (0.8-4.8); Lymphocytes % 27.6 %; Mean Corpuscular HGB Conc 32.2 g/dL (30.0-36.0); Mean Corpuscular Hemoglobin 30.1 pg (28.0-34.0); Mean Corpuscular Volume 93.3 fl (80-94); Mean Platelet Volume 10.5 fL (7.4-10.4); Monocytes # 0.6 10^3/uL (0.2-0.9); Monocytes % 8.3 %; Neutrophils # 4.16 10^3/uL (1.8-7.7); Nucleated Red Blood Cells % 0 %; Platelet Count 349 10^3/cmm (130-400); Red Blood Count 4.89 10^6/uL (4.1-5.3); Red Cell Distribution Width 13.9 % (12.1-15.1); White Blood Count 6.7 10^3/uL (4.0-10.0)
[2022-08-22 14:29] VITALS: BP 163/90
--- NOTE | 2022-08-22 14:31 | ED_ITS ---
HPI - Weakness General: Chief complaint: Weakness Stated complaint: Left side weakness Time Seen by Provider: 08/22/22 14:19 Source: patient Mode of arrival: ambulatory History of Present Illness: 87-year-old male with a history of coronary artery disease comes in complaining of onset of left leg weakness dizziness difficulty ambulating that began about 2 days ago when he got up at night to let his dogs out. He felt like he could not walk straight and had difficult time balancing without holding onto the wall this improved some since then. He says he feel like he is dragging his left leg. Evidently he was at [facility] today and they told him they thought he might have bleeding in his brain. He presents here. He is on aspirin he is not on any other anticoagulants. There is no recent head trauma he has not had any headaches he has not had any vomiting. He has no chest pain at this time. His initial NIH score on arrival is 0 MD Complaint: focal weakness (Left leg) Onset (ago): day(s) (2) Duration: constant Location: LLE Migration: none Severity: mild Relieving factors: none Exacerbating factors: none Associated symptoms: Denies chest pain, chills, confusion, melena, decreased appetite, diaphoresis, dysuria, easy bruising, fever(s), headache(s), myalgias, nausea, rash, short of breath, syncope or vomiting Review of Systems Const: Denies: fever(s), chills, fatigue, malaise or diaphoresis ENMT: Denies: throat pain, ear or mastoid pain, nasal discharge or nasal congestion Card: Denies: chest pain, palpitations, irregular heart rhythm or syncope Resp: Denies: dyspnea, productive cough or non-productive cough GI: Denies: abdominal pain, nausea, vomiting or melena : Denies: flank pain, difficulty urinating, dysuria, urinary frequency or urinary urgency Skin/Breast: Denies: rash or pruritus Neuro: Denies: headache(s) or confusion Chi/Lymph: Denies: easy bruising PFSH ED PFSH: Medical History Hypertension Surgical History H/O inguinal hernia repair Social History Smoking and tobacco status: never smoked Alcohol intake: never Physical Exam Const: COMMON NORMALS: no acute distress GENERAL APPEARANCE: cooperative and comfortable ORIENTATION/CONSCIOUSNESS: Yes awake, Yes oriented to person, Yes oriented to place and Yes oriented to time HENMT: COMMON NORMALS: normocephalic and atraumatic HEAD & SCALP: normocephalic and atraumatic Resp: COMMON NORMALS: normal respiratory effort, No retractions, No use of accessory muscles and clear to auscultation bilaterally AUSCULTATION: clear to auscultation bilaterally Cardio: COMMON NORMALS: regular rate, regular rhythm and No murmurs present (Cardio) RATE: regular rate RHYTHM: regular rhythm GI: COMMON NORMALS: Soft to palpation and No hepatosplenomegaly present AUSCULTATION: Yes normoactive bowel sounds PALPATION: Yes Soft to palpation, No Tenderness to palpation present (GI), No Guarding due to palpation present (GI) and Yes No hepatosplenomegaly present Extremity: COMMON NORMALS: normal to inspection, capillary refill normal, no clubbing, cyanosis or edema, no calf tenderness and no pedal edema Neuro: SENSORIUM/ORIENTATION: Yes oriented to person, Yes oriented to place and Yes oriented to time Skin: COMMON NORMALS: no rashes or lesions noted GENERAL SKIN EXAM: no rashes or lesions noted Course Vital Signs: Vital signs: Vital Signs Temperature 98.3 F 08/22/22 11:30 Pulse Rate 84 08/22/22 17:00 Respiratory Rate 16 08/22/22 11:30 Blood Pressure 166/87 08/22/22 17:00 Pulse Oximetry 94 08/22/22 17:00 Oxygen Delivery Me thod 08/22/22 17:00 MDM - Weakness Medical Decision Making Labs imaging and EKG reviewed as found on the chart. CT is unremarkable no acute bleed no focal neurologic deficits noted. Patient presented with a stroke score of 0 and completion work-up is NIH score is still 0. We will ambulate in the department if he is able to ambulate without difficulty will discharge home on double antiplatelet therapy and follow-up as an outpatient for further work- up. Medical Records I reviewed the patient's medical records. Lab Data I reviewed the patient's lab results. : 08/22/22 14:16 08/22/22 14:[address] 08/22/22 14:21 IMPRESSION: Negative for intracranial hemorrhage or mass effect. Ribs X-Ray 08/22/22 14:57 IMPRESSION: No acute findings. Laboratory Results WBC 6.7 10^3/uL (4.0-10.0) 08/22/22 14:16 RBC 4.89 10^6/uL (4.1-5.3) 08/22/22 14:16 Hgb 14.7 g/dL (11.7-16.6) 08/22/22 14:16 Hct 45.6 % (42.0-52.0) 08/22/22 14:16 MCV 93.3 fl (80-94) 08/22/22 14:16 MCH 30.1 pg (28.0-34.0) 08/22/22 14:16 MCHC 32.2 g/dL (30.0-36.0) 08/22/22 14:16 RDW 13.9 % (12.1-15.1) 08/22/22 14:16 Plt Count 349 10^3/cmm (130-400) 08/22/22 14:16 MPV 10.5 fL (7.4-10.4) H 08/22/22 14:16 Neut % (Auto) 62.0 % 08/22/22 14:16 Lymph % (Auto) 27.6 % 08/22/22 14:16 Vilas % (Auto) 8.3 % 08/22/22 14:16 Eos % (Auto) 1.2 % 08/22/22 14:16 Baso % (Auto) 0.6 % 08/22/22 14:16 Neut # (Auto) 4.16 10^3/uL (1.8-7.7) 08/22/22 14:16 Lymph # (Auto) 1.9 10^3/uL (0.8-4.8) 08/22/22 14:16 Vilas # (Auto) 0.6 10^3/uL (0.2-0.9) 08/22/22 14:16 Eos # (Auto) 0.1 10^3/uL (0.0-0.8) 08/22/22 14:16 Baso # (Auto) 0.0 10^3/uL (0.0-0.1) 08/22/22 14:16 Nucleated RBC % (auto) 0 % 08/22/22 14:16 Nucleated RBCs # 0.0 /100WBC 08/22/22 14:16 Sodium 142 mmol/L (136-145) 08/22/22 14:16 Potassium 4.9 mmol/L (3.5-5.1) 08/22/22 14:16 Chloride 104 mmol/L (98-107) 08/22/22 14:16 Carbon Dioxide 27 mmol/L (22-29) 08/22/22 14:16 Anion Gap 15.9 (5-19) 08/22/22 14:16 BUN 13 mg/dL (8-23) 08/22/22 14:16 Creatinine 0.9 mg/dL (0.7-1.2) 08/22/22 14:16 GFR Calculation Not Reportable 08/22/22 14:16 Glucose 118 mg/dL (65-115) H 08/22/22 14:16 Calculated Osmolality 295 mOsm/kg (285-295) 08/22/22 14:16 Calcium 9.7 mg/dL (8.5-10.5) 08/22/22 14:16 Discharge Plan Discharge Patient Disposition: Home Clinical Impression: Transient ischemic attack (TIA) Condition: Stable Prescriptions: New clopidogrel 75 mg tablet 75 mg PO DAILY Qty: 30 0RF No Action Centrum Silver Men 300-600-300 mcg Tablet 1 tab PO DAILY@0800 latanoprost 0.005 % Drops 2 drp OPHTHALMIC (EYE) DAILY@1800 aspirin 81 mg Tablet,Delayed Release (Dr/Ec) 81 mg PO DAILY@0800 losartan-hydrochlorothiazide 100-25 mg Tablet 1 tab PO DAILY ezetimibe 10 mg Tablet 10 mg PO DAILY rosuvastatin 10 mg Tablet 5 mg PO DAILY@1800 cholecalciferol (vitamin D3) [Vitamin D3] 125 mcg (5,000 unit) Tablet 125 mcg PO DAILY@0800 omega-3 fatty acids [Fish Oil Concentrate] 1,000 mg Capsule 1,000 mg PO BID potassium chloride 10 mEq Tablet Extended Release 10 meq PO DAILY@08 acetaminophen [Tylenol Ex Str Rapid Release] 500 mg Tablet 500 mg PO Q6H PRN (Reason: Pain) famotidine [Pepcid] 20 mg Tablet 20 mg PO BID PRN (Reason: lower stomach acid) calcium carbonate 500 mg calcium (1,250 mg) Tablet,Chewable 1,000 mg PO TID PRN (Reason: unknown) ondansetron [Zofran ODT] 4 mg Tablet,Disintegrating 4 mg PO TID PRN (Reason: Nausea And Vomiting) loratadine [Claritin] 10 mg Tablet 10 mg PO DAILY simethicone 80 mg Tablet,Chewable 80 mg PO TID PRN (Reason: gas discomfort) coenzyme Q10 [CoQ-10] 100 mg Capsule 100 mg PO DAILY@18 venlafaxine 75 mg Tablet Extended Release 24hr 75 mg PO QAM lactobacillus combo #5 150 mg (2 billion cell) Tablet,Delayed Release (Dr/Ec) 150 mg PO DAILY magnesium citrate 100 mg Tablet 100 mg PO DAILY Glucosamine Chondroitin 550-30-1 mg Capsule 1 cap PO BID Flonase 50 mcg/actuation Lyman,Suspension 1 spray INTRANASAL DAILY Rx Instructions: administer into each nostril timolol maleate 0.5 % Drops, Once Daily 1 drp OPHTHALMIC (EYE) BID Discharge Orders: Discharge ED (Routine); Ordered 08/22/22 Ordered By: Rolando Hobbs Referrals: Preston Ashley MD [Primary Care Provider] - Discharge Diet: Usual diet Discharge Activity: Increase activity as tolerated Patient Instructions: Opioid Safety, Pain Management Activity Restrictions/Additional Instructions: Management make arrangements for an outpatient MRI with and without contrast. Follow-up with your doctor within the next week. 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
[2022-08-22 14:46] LABS: Anion Gap 15.9 (5-19); Blood Urea Nitrogen 13 mg/dL (8-23); Calcium 9.7 mg/dL (8.5-10.5); Carbon Dioxide 27 mmol/L (22-29); Chloride 104 mmol/L (98-107); Glucose 118 mg/dL (65-115); Osmolality Calculated 295 mOsm/kg (285-295); Potassium 4.9 mmol/L (3.5-5.1); Sodium 142 mmol/L (136-145)
--- NOTE | 2022-08-22 14:57 | XRR_ITS ---
PROCEDURE INFORMATION: Exam: XR Left Ribs with PA Chest Exam date and time: 08/22/2022 3:06 PM Age: 87 years old Clinical indication: Chest wall pain; Left; Additional info: Rib tenderness TECHNIQUE: Imaging protocol: Radiologic exam of the Left ribs with PA chest. Views: 3 views COMPARISON: CR XR chest 1V portable [id number] 08/05/2022 3:13 PM FINDINGS: Lungs: Unremarkable. No consolidation. Pleural spaces: Unremarkable. No pleural effusion. No pneumothorax. Heart/Mediastinum: Unremarkable. No cardiomegaly. Bones/joints: Unremarkable. XR/XR ribs LT mn 3V w CXR1V [id number] IMPRESSION: No acute findings.
[2022-08-22 15:30] VITALS: BP 179/101; PULSE 68; O2SAT 94
[2022-08-22 16:00] VITALS: BP 151/84; PULSE 70; O2SAT 98
[2022-08-22 17:00] VITALS: BP 166/87; PULSE 84; O2SAT 94
--- NOTE | 2022-08-27 13:34 | DCPLANNER ---
Addendum entered by Keira Brand 11/06/22 15:26: Patient had a follow up appointment scheduled with neurology - patient did attend appointment Addendum entered by Keira Brand 09/05/22 13:56: Patient has a follow up appointment scheduled for Tuesday, September 06, 2022 at 11:00 with Flavio at neurology. Clinic will call patient with appointment information. Original Note: medical staff manager had message to schedule an outpatient MRI for patient. Patient has VA insurance, rehabilitation case coordinator cannot order the MRI from the ER, rehabilitation case coordinator referred patient to neurology. medical staff manager sent patients information to the front office staff at neurology. Patients information will be printed and reviewed. Clinic will call patient with appointment information.
== END 2022-08-22 18:15 | disposition home or self-care (01) ==
PROVIDERS: Emergency Medicine; Emergency Provider Family Medicine; PCP Family Medicine
DX: G45.9 Transient cerebral ischemic attack, unspecified (principal); I10 Essential (primary) hypertension
CPT/HCPCS: 36415; 70450; 71101; 80048; 85025; 99285

== ENCOUNTER → 2022-09-06 10:44 | Outpatient (BNVA) | payer OTHER, SELFPAY | PROVIDERS: PCP Family Medicine; Referring Provider Family Medicine; Visit Provider Nurse Practitioner | DX: I67.9 Cerebrovascular disease, unspecified (principal); G81.94 Hemiplegia, unspecified affecting left nondominant side | CPT/HCPCS: 99204 ==

== ENCOUNTER → 2022-10-22 12:41 | Outpatient (BNVA) | payer OTHER, SELFPAY | PROVIDERS: PCP Family Medicine; Visit Provider Internal Medicine | DX: R07.9 Chest pain, unspecified (principal); I10 Essential (primary) hypertension | CPT/HCPCS: 99204 ==

== ENCOUNTER 2022-11-01 12:43 | Outpatient (CLI) | payer OTHER, SELFPAY ==
--- NOTE | 2022-11-01 13:00 | USCV_ITS ---
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 CHEMIST MSN AGACNP-BC Technologist: MATY [place] [facility] [place]: CEREBRAL INFARCTION BP: 124 / 60 HR: 62 Rhythm: Sinus Technical Quality: Adequate MEASUREMENTS (Male / Female) Normal Values 2D ECHO LVOT Diameter 2.0 cm LV Ejection Fraction MOD 2C 69.8 % LV Ejection Fraction 2C AL 69.4 % LA Diameter 2.9 cm LA Width 2.7 cm LA Height 3.1 cm RA Width 3.3 cm RA Height 3.8 cm Aorta at Sinotubular Diameter 2.5 cm IVC Diameter 1.1 cm M-MODE Aortic Annulus Diameter 3.3 cm LA Ao Ratio MM 0.8 MV E Point Septal Separation 0.7 cm DOPPLER AV Peak Velocity 105.0 cm/s LVOT Peak Velocity 86.0 cm/s AV Area Cont Eq vti 2.9 cm squared AV Area Cont Eq pk 2.5 cm squared MV Peak Velocity 100.0 cm/s MV Area PHT 4.0 cm squared Mitral E to A Ratio 0.6 MV E' Velocity 31.0 cm/s Mitral E to MV E' Ratio 7.8 Mitral E to LV E' Lateral Ratio 9.6 Mitral E to LV E' Septal Ratio 6.7 TR Peak Velocity 84.4 cm/s TR Peak Gradient 2.8 mmHg TR Mean Velocity 64.8 cm/s TR Mean Gradient 1.8 mmHg TR Velocity Time Integral 17.5 cm TV Peak E Velocity 45.0 cm/s Right Atrial Pressure 3.0 mmHg Pulmonary Artery Systolic Pressu 5.8 mmHg PV Peak Velocity 74.0 cm/s RV Acceleration Time 0.2 s RV Ejection Time 0.4 s RV AcT/ET 0.5 FINDINGS Left Ventricle Left ventricle is normal in size. LV systolic function is normal with EF of 55-60%. No regional wall motion abnormalities are seen. Grade 1 diastolic dysfunction Right Ventricle Not well-visualized. Grossly normal Right Atrium Normal in size Left Atrium Normal in size Mitral Valve Grossly normal. Trace mitral regurgitation. Aortic Valve Structurally normal aortic valve. No significant stenosis or regurgitation. Tricuspid Valve Mild tricuspid regurgitation. Pulmonary artery systolic pressure is normal Pulmonic Valve Not well-visualized Pericardium Normal Aorta Normal in size IVC Appears to be normal CONCLUSIONS Technically limited quality echocardiogram because of poor ultrasonic windows. LV systolic function is normal with EF of 55 to 60%. Grade 1 diastolic dysfunction Trace mitral regurgitation Mild tricuspid regurgitation No comparison studies are available Nickolas Richter MD (Electronically Signed) Final Date: 01 November 2022 14:21 S
== END 2022-11-01 12:44 | disposition home or self-care (01) ==
LOC: RAD 12:44
PROVIDERS: PCP Family Medicine; Visit Provider Nurse Practitioner
DX: I63.9 Cerebral infarction, unspecified (principal); I08.1 Rheumatic disorders of both mitral and tricuspid valves
CPT/HCPCS: 93306

== ENCOUNTER 2022-11-27 09:49 | Outpatient (CLI) | payer OTHER, SELFPAY ==
[2022-11-27 10:56] VITALS: BMI 25.8
--- NOTE | 2022-11-27 10:58 | ECG_ITS ---
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 Interpretive Statements NAME OF STUDY: LEXISCAN SESTAMIBI STRESS TEST INDICATION: [Chest Pain, ] Procedure: At the baseline, the blood pressure was 150/82 with a heart rate of 69 bpm. The electrocardiogram showed normal sinus rhythm, normal axis with normal ST and T's. The Lexiscan was infused over a period of 20 seconds. A total of 0.4 mg of Lexiscan was infused. The stress phase was continued for a total of 5 minutes. Heart rate was at the end of stress phase was 88 bpm and a blood pressure of 126/79 mmHg. The EKG at the peak infusion revealed normal sinus rhythm with no significant ST-T wave changes. Sestamibi was injected 20 seconds after the Lexiscan infusion. Blood pressure at the end of recovery phase was 135/77 mmHg with a heart rate of 90 bpm. Conclusion: 1. Normal EKG response to Lexiscan infusion 2. No Lexiscan induced chest pain or cardiac arrhythmia. 3. Normal blood pressure and heart rate response. 4. Sestamibi/sestamibi perfusion scan pending; see separate report. 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 [id number]
--- NOTE | 2022-11-27 10:58 | NMCV_ITS ---
NM gadiel perf SPECT r/s* [id number] John Maier Age: 87 Gender: M : 1935 Exam Date: 11/27/2022 10:58 Ordering Phys: Nickolas Richter M.D ([email or web address]) Technologist: BRIAN Yi Exam Location: [facility] Indications: CHEST PAIN STRESS TEST Please see separate stress [facility] for full findings IMAGE PROTOCOL Rest/Stress 1 Lexiscan Day Radiopharmaceutical Dose (mCi) Administration Site Administered by Rest: Tc-99m 10.9 IV BRIAN Shaw Sestamibi Stress:Tc-99m 32.9 IV BRIAN Shaw Sestamibi Rest: 27-Nov-2022 60 Discovery 630 Stress: 27-Nov-2022 30 Discovery 630 0.4mg Lexiscan. Supine position only as patient was unable to lay prone. SPECT RESULTS Technical Quality: Excellent Raw Data Analysis: Normal Image Corrections: No attenuation or motion correction applied Summed Stress Score: 2 Summed Rest Score: 1 Summed Difference Score: 2 PERFUSION FINDINGS There is a small in size, partially reversible perfusion defect in the inferolateral wall. This is consistent with small sized prior infarct in the left circumflex artery territory with minimal celena-infarct ischemia. FUNCTIONAL RESULTS (calculated via Gated SPECT) Stress Image LV EF (%): 63 Stress EDV (mL):83 TID: 1.18 Stress ESV (mL):31 FUNCTIONAL FINDINGS: There is normal left ventricular systolic function. IMPRESSIONS 1. Small sized prior infarct with minimal celena-infarct ischemia is noted in the left circumflex artery territory. 2. LV systolic function is normal. Nickolas Richter MD (Electronically Signed) Final Date: 27 November 2022 14:51 S
[2022-11-27 13:14] VITALS: BP 135/77; PULSE 89
[2022-11-27] MEDS: regadenoson 0.4 Mg/5 ml Syringe IVP (13:14)
== END 2022-11-27 09:50 | disposition home or self-care (01) ==
PROVIDERS: PCP Family Medicine; Visit Provider Internal Medicine
DX: R07.9 Chest pain, unspecified (principal); I25.9 Chronic ischemic heart disease, unspecified
CPT/HCPCS: 36415; 78452; 93017; 96374; A9500; J2785

== ENCOUNTER 2023-01-07 14:14 | Outpatient (CLI) | payer OTHER, SELFPAY ==
--- NOTE | 2023-01-07 14:15 | USCV_ITS ---
John Maier Age: 87 Gender: M : 1935 Exam Date: 01/07/2023 14:36 Ordering Phys: Nickolas Richter M.D ([email or web address]) Technologist: Exam Location[place] [facility] [place] Indication: dizzy Risk Factors: None Previous Vascular Surgery: Right Brachial BP: / Left Brachial BP: / Right Left Velocity (cm/s) Spectral Plaque Velocity (cm/s) Spectral Plaque Syst/Diast Broadening Syst/Diast Broadening 90.60/ 14.30 Prox CCA 69.70 / 11.20 82.20/ 11.90 Mid CCA 53.70 / 9.60 65.30/ 12.20 Distal CCA 77.70 / 14.40 62.70/ 9.60 Prox ICA 71.60 / 11.40 48.80/ 7.80 Mid ICA 98.90 / 17.10 59.20/ 13.90 Distal ICA 87.60 / 17.10 61.00 ECA 97.80 0.69 ICA/CCA 1.27 Antegrade Vertebral Antegrade 32.90/ 5.10 cm/s 39.55/ 8.05 cm/s Bi Subclavian Bi 44.30 125.1 0 FINDINGS Diffuse plaques at the bifurcation, ICAs and CCAs I reviewed flow in the vertebral arteries bilaterally. Normal Doppler flow velocities in the external carotid, subclavian and vertebral arteries CONCLUSIONS Mild diffuse plaques of the bifurcation, internal carotid and common carotid arteries. No significant stenosis, in the subclavian, vertebral and external carotid arteries Dr Riley Wyatt MD [facility] (Electronically Signed) Final Date: 08 January 2023 17:34 S
== END 2023-01-07 14:15 | disposition home or self-care (01) ==
LOC: RAD 14:14
PROVIDERS: PCP Family Medicine; Visit Provider Internal Medicine
DX: R55 Syncope and collapse (principal)
CPT/HCPCS: 93880

== ENCOUNTER → 2023-02-07 10:28 | Outpatient (BNVA) | payer OTHER, SELFPAY | PROVIDERS: PCP Family Medicine; Visit Provider Internal Medicine | DX: R07.9 Chest pain, unspecified (principal); I10 Essential (primary) hypertension; Z79.82 Long term (current) use of aspirin | CPT/HCPCS: 99213 ==

== ENCOUNTER 2023-04-24 15:09 | Emergency (ER) | payer OTHER, SELFPAY ==
[2023-04-24 15:22] VITALS: BP 130/81; PULSE 88; RESP 16; O2SAT 97
--- NOTE | 2023-04-24 15:58 | ED_ITS ---
HPI - Skin/Abscess/Foreign Bdy General: Chief complaint: Skin/Abscess/Foreign Body Stated complaint: tick bite Time Seen by Provider: 04/24/23 15:24 History of Present Illness: Patient is an 88-year-old male that comes to the ED with tick bite on left side of chest. Yesterday patient [facility] and they removed a tick bite from patient's left side of chest. They started him on doxycycline and he has taken 2 doses. Today patient's redness around tick bite has gotten bigger so patient came here to the ED to be evaluated. Patient said he received a tetanus shot at his PCPs office yesterday. Denies any pain from tick bite. Denies any fevers. Associated symptoms: Deny chills, fever(s), nausea or vomiting Review of Systems Const: Denies: fever(s), chills or fatigue Eyes: Denies: change in vision or eye discomfort ENMT: Denies: throat pain, odynophagia, nasal discharge or nasal congestion Card: Denies: chest pain, palpitations, edema, swelling of feet/ankles, dyspnea on exertion or orthopnea Resp: Denies: dyspnea, productive cough or non-productive cough GI: Denies: abdominal pain, nausea, vomiting, diarrhea, constipation or hematochezia : Denies: flank pain, difficulty urinating, dysuria or hematuria Musc: Denies: neck pain, back pain or extremity swelling Skin/Breast: Reports: new lesions (Tick bite to left side of chest wall.); Denies: rash Neuro: Denies: headache(s), numbness in extremities or weakness in extremities [facility] ED PFSH: Medical History CVA (cerebral vascular accident) Hypertension Surgical History H/O inguinal hernia repair Social History Smoking and tobacco status: never smoked Alcohol intake: never Substance/Drug Use: never Physical Exam Const: COMMON NORMALS: patient oriented x3 HENMT: COMMON NORMALS: normocephalic HEAD & SCALP: normocephalic MOUTH: Normal oral and palatal mucosa present THROAT: posterior oropharynx normal and uvula midline Neck/C-Spine: COMMON NORMALS: supple GENERAL: Yes normal visual inspection Resp: COMMON NORMALS: normal respiratory effort, No retractions, No use of accessory muscles and clear to auscultation bilaterally AUSCULTATION: clear to auscultation bilaterally Cardio: COMMON NORMALS: regular rate, regular rhythm, S1 normal heart sound present, S2 normal heart sound present, No gallops present (Cardio), No clicks present (Cardio), No murmurs present (Cardio) and Peripheral pulses 2+ throughout RATE: regular rate RHYTHM: regular rhythm HEART SOUNDS: S1 normal heart sound present and S2 normal heart sound present PERIPHERAL PULSES: Peripheral pulses 2+ throughout GI: COMMON NORMALS: Normal to inspection, nondistended, normoactive bowel so unds present, Soft to palpation, non-tender and no masses PALPATION: Yes Soft to palpation : COMMON NORMALS: Yes no CVA tenderness BLADDER/KIDNEY EXAM: Yes no CVA tenderness Back/Pelvis: COMMON NORMALS: no CVA tenderness Neuro: COMMON NORMALS: patient oriented x3 GAIT: Yes Normal gait present Skin: NARRATIVE SKIN EXAM: Chest wall left side?tick bite with no embedded tick seen. Surrounding erythema and warmth. Erythema migrans type rash present. GENERAL SKIN EXAM: dry skin Course Vital Signs: Vital signs: Vital Signs Pulse Rate 88 04/24/23 15:22 Respiratory Rate 16 04/24/23 15:22 Blood Pressure 130/81 04/24/23 15:22 Pulse Oximetry 97 04/24/23 15:22 Oxygen Delivery Me thod Room Air 04/24/23 15:22 MDM - Skin/Abscess/Foreign Bdy Medicial Decision Making Patient is an 88-year-old male that comes to the ED with tick bite on left side of chest. Yesterday patient [facility] and they removed a tick bite from patient's left side of chest. They started him on doxycycline and he has taken 2 doses. Today patient's redness around tick bite has gotten bigger so patient came here to the ED to be evaluated. Patient said he received a tetanus shot at his PCPs office yesterday. Denies any pain from tick bite. Denies any fevers. Vitals are stable. Chest wall left side?tick bite with no embedded tick seen. Surrounding erythema and warmth. Erythema migrans type rash present. Patient is nontoxic in no acute distress or pain. Patient was diagnosed with a tick bite that appears to be developing some cellulitis. He was given a dose of Rocephin here in the ED and was told to continue taking his previously prescribed doxycycline. Follow-up with PCP in the next week for reevaluation. Return to ED precautions given. Patient understood and agreed with plan. Discharge Plan Discharge Patient Disposition: Home Clinical Impression: Tick bite Qualifiers: Encounter type: initial encounter Site of tick bite: thoracic wall Front or back of thoracic wall: front Thoracic wall location detail: left Qualified Code(s): S20.362A - Insect bite (nonvenomous) of left front wall of thorax, initial encounter Condition: Stable Prescriptions: No Action amlodipine 2.5 mg tablet 2.5 mg PO DAILY Centrum Silver Men 300-600-300 mcg Tablet 1 tab PO DAILY@0800 latanoprost 0.005 % Drops 2 drp OPHTHALMIC (EYE) DAILY@1800 aspirin 81 mg Tablet,Delayed Release (Dr/Ec) 81 mg PO DAILY@0800 losartan-hydrochlorothiazide 100-25 mg Tablet 1 tab PO DAILY ezetimibe 10 mg Tablet 10 mg PO DAILY cholecalciferol (vitamin D3) [Vitamin D3] 125 mcg (5,000 unit) Tablet 125 mcg PO DAILY@0800 omega-3 fatty acids [Fish Oil Concentrate] 1,000 mg Capsule 1,000 mg PO BID potassium chloride 10 mEq Tablet Extended Release 10 meq PO DAILY@08 acetaminophen [Tylenol Ex Str Rapid Release] 500 mg Tablet 500 mg PO Q6H PRN (Reason: Pain) calcium carbonate 500 mg calcium (1,250 mg) Tablet,Chewable 1,000 mg PO TID PRN (Reason: unknown) loratadine [Claritin] 10 mg Tablet 10 mg PO DAILY coenzyme Q10 [CoQ-10] 100 mg Capsule 100 mg PO DAILY@18 venlafaxine 75 mg Tablet Extended Release 24hr 75 mg PO QAM lactobacillus combo #5 150 mg (2 billion cell) Tablet,Delayed Release (Dr/Ec) 150 mg PO DAILY magnesium citrate 100 mg Tablet 100 mg PO DAILY Glucosamine Chondroitin 550-30-1 mg Capsule 1 cap PO BID Flonase 50 mcg/actuation [place],Suspension 1 spray INTRANASAL DAILY Rx Instructions: administer into each nostril clopidogrel 75 mg tablet 75 mg PO DAILY Qty: 30 0RF Discharge Orders: Discharge ED (Routine); Ordered 04/24/23 Ordered By: Jaspal Blum Referrals: Joanna Jones MD [Primary Care Provider] - Discharge Diet: Regular Discharge Activity: Increase activity as tolerated Patient Instructions: Tick Bite (ED) Activity Restrictions/Additional Instructions: Follow-up with medical provider as directed in the next 3 to 5 days for reevaluation. Continue taking previously prescribed antibiotic until prescription is complete. Return to the ER or your medical provider if condition worsens. Please read and understand discharge instructions. Thank you for choosing [facility] for your healthcare needs today. Please realize this is an emergency room and that we are providing you with a medical screening exam and this may not be complete and all inclusive of all the testing and or work up that you may need to determine your ailment or severity of your illness. It is very important that you follow up as instructed or that you return to the Emergency Department should you have concerns or if your condition changes or worsens in any way. 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
[2023-04-24] MEDS: cefTRIAXone 1,000 MG in water for injection-sterile 2.1 ML 2.1 MG IM (16:10)
== END 2023-04-24 16:16 | disposition home or self-care (01) ==
PROVIDERS: Emergency Provider Physician Assistant; PCP Family Medicine
DX: S20.362A Insect bite (nonvenomous) of left front wall of thorax, initial encounter (principal); W57.XXXA Bitten or stung by nonvenomous insect and other nonvenomous arthropods, initial encounter
CPT/HCPCS: 96372; 99284; J0696

== ENCOUNTER → 2023-12-31 12:58 | Outpatient (BNVA) | payer OTHER, SELFPAY | PROVIDERS: PCP Family Medicine; Referring Provider Family Medicine; Visit Provider Specialist | DX: M17.12 Unilateral primary osteoarthritis, left knee; M25.862 Other specified joint disorders, left knee | CPT/HCPCS: 73560; 73565; 99204 ==

== ENCOUNTER → 2024-02-19 12:43 | Outpatient (BNVA) | payer OTHER, SELFPAY | PROVIDERS: PCP Family Medicine; Visit Provider Internal Medicine | DX: R07.9 Chest pain, unspecified (principal); I10 Essential (primary) hypertension | CPT/HCPCS: 99214 ==

== ENCOUNTER → 2025-02-17 12:15 | Outpatient (BNVA) | payer OTHER, SELFPAY | PROVIDERS: PCP Family Medicine; Visit Provider Internal Medicine | DX: R07.9 Chest pain, unspecified (principal); I10 Essential (primary) hypertension; Z86.73 Personal history of transient ischemic attack (TIA), and cerebral infarction without residual deficits | CPT/HCPCS: 99213 ==

== ENCOUNTER 2025-07-20 09:45 | Outpatient (CLI) | payer OTHER, SELFPAY ==
--- NOTE | 2025-07-20 09:51 | USR_ITS ---
PROCEDURE INFORMATION: Exam: US Duplex Bilateral Lower Extremity Arteries Exam date and time: 07/20/2025 10:08 AM Age: 89 years old Clinical indication: Other: Claudication; Additional info: Pain legs bilaterally claudication TECHNIQUE: Imaging protocol: Real-time ultrasound scan of the arteries of the bilateral lower extremities with 2-D carreon scale, color Doppler flow and spectral waveform analysis. Images documented and saved. COMPARISON: US soft tissue/extremity [id number] 11/24/2023 9:53 AM FINDINGS: Right common femoral artery: No occlusion or significant stenosis. Normal waveform. Right superficial femoral artery: No occlusion or significant stenosis. Normal waveform. Right popliteal artery: No occlusion or significant stenosis. Normal waveform. Right calf/foot arteries: No occlusion or significant stenosis in the visualized arteries. Biphasic dorsalis pedis and posterior tibial artery waveforms. Dorsalis pedis artery is patent. Left common femoral artery: No occlusion or significant stenosis. Normal waveform. Left superficial femoral artery: No occlusion or significant stenosis. Normal waveform. Left popliteal artery: No occlusion or significant stenosis. Normal waveform. Left calf/foot arteries: No occlusion or significant stenosis in the visualized arteries. Biphasic dorsalis pedis and posterior tibial waveforms. Dorsalis pedis artery is patent. Right Ankle-Brachial Index: 1.13 Left Ankle-Brachial Index: 1.22. US/CV arterial duplex [facility] [id number] IMPRESSION: No evidence of hemodynamically significant stenosis or arterial occlusion in the lower extremities.
== END 2025-07-20 09:46 | disposition home or self-care (01) ==
LOC: RAD 09:47
PROVIDERS: PCP Family Medicine; Visit Provider Family Medicine
DX: I73.9 Peripheral vascular disease, unspecified (principal)
CPT/HCPCS: 93925

== ENCOUNTER 2025-08-26 08:20 | Outpatient (CLI) | payer OTHER, SELFPAY ==
--- NOTE | 2025-08-26 08:33 | US_ITS ---
WS: [id number] Ultrasound abdomen limited. HISTORY: Subcutaneous mass LEFT lower quadrant. Spleen is not identified. LEFT kidney is normal size measuring 10 cm in length. No hydronephrosis or mass. No cortical thinning. Ultrasound is directed over the abdominal wall in the LEFT lower quadrant. No abnormality is identified by ultrasound. US/US abdomen limited [id number] IMPRESSION: No soft tissue abnormality noted in the LEFT lower quadrant.
--- NOTE | 2025-08-26 08:43 | US_ITS ---
WS: [id number] ULTRASOUND SOFT TISSUES bilateral popliteal fossa. HISTORY: POPLITEAL PAIN COMPARISON: None available. TECHNIQUE: 2-D and color Doppler imaging is submitted. In the LEFT popliteal space there is a complex cystic mass measuring 5.8 x 2.5 x 1.1 cm. There is low-level debris within the mass. This is most consistent with a Tanner's cyst. Negative ultrasound RIGHT popliteal fossa. US/US soft tissue/extremity [id number] IMPRESSION: Small LEFT Tanner's cyst. Negative RIGHT popliteal fossa.
== END 2025-08-26 08:21 | disposition home or self-care (01) ==
LOC: RAD 08:23
PROVIDERS: PCP Family Medicine; Visit Provider Family Medicine
DX: R19.04 Left lower quadrant abdominal swelling, mass and lump (principal); M71.22 Synovial cyst of popliteal space [Baker], left knee; Z90.81 Acquired absence of spleen
CPT/HCPCS: 76705; 76882